=== PATIENT | female | born 1965 | race Caucasian/White ===

== ENCOUNTER 2017-10-20 09:44 | Emergency (ER) | payer OTHER ==
[~2017-10-20] VITALS: Ht 165.1 cm; Wt 56.7 kg
[2017-10-20] MEDS ORDERED: NORCO 5-325 TA1 EACH PO (10:54)
[2017-10-20 11:10] VITALS: BP 133/59
== END 2017-10-20 11:11 | disposition home or self-care (01) ==
LOC: M.ERS 09:44
DX: S82.142A Displaced bicondylar fracture of left tibia, initial encounter for closed fracture (principal); X58.XXXA Exposure to other specified factors, initial encounter; Y93.89 Activity, other specified; Y92.89 Other specified places as the place of occurrence of the external cause; Y99.8 Other external cause status

== ENCOUNTER → 2017-10-26 | Outpatient (CLI) | payer OTHER ==
[~2017-10-26] MED LIST: NORCO 5-325 TA1 EACH PO
== END ==
LOC: M.CT 10-24 14:00
DX: S82.092A Other fracture of left patella, initial encounter for closed fracture (principal); M85.862 Other specified disorders of bone density and structure, left lower leg; X58.XXXA Exposure to other specified factors, initial encounter; Y93.89 Activity, other specified; Y92.89 Other specified places as the place of occurrence of the external cause; Y99.8 Other external cause status